=== PATIENT | male | born 1965 | race Caucasian/White ===

== ENCOUNTER 2016-11-21 08:31 | Inpatient (IN) | payer MEDICAID ==
[~2016-11-21] VITALS: Ht 167.6 cm; Wt 104.8 kg
[2016-11-21 08:56] VITALS: BP 136/86
[2016-11-21] MEDS ORDERED: MORPHINE SULFATE 4 MG/ML SYR IVP ONE (09:05)
[2016-11-21 09:29] LABS: BASOPHILS # (AUTO) 0.4 K/uL (0.00-0.22); BASOPHILS % (AUTO) 4.8 % (0.0-2.0); EOSINOPHILS # (AUTO) 0.2 K/uL (0-0.4); EOSINOPHILS % (AUTO) 2.6 % (0.0-4.0); HEMATOCRIT 48.4 % (36-52); HEMOGLOBIN 16.2 g/dL (12.0-18.0); LYMPHOCYTES # (AUTO) 2.9 K/uL (2.0-11.5); LYMPHOCYTES % (AUTO) 33.8 % (20.5-51.1); MEAN CORPUSCULAR HEMOGLOBIN 29 pg (27-31); MEAN CORPUSCULAR HGB CONC 34 g/dL (33-37); MEAN CORPUSCULAR VOLUME 88 fL (80-94); MONOCYTES # (AUTO) 0.6 K/uL (0.8-1.0); MONOCYTES % (AUTO) 7.2 % (1.7-9.3); NEUTROPHILS # (AUTO) 4.5 K/uL (1.8-7.7); NEUTROPHILS % (AUTO) 51.6 % (42.2-75.2); PLATELET COUNT (AUTO) 230 K/uL (140-450); RED CELL DISTRIBUTION WIDTH 13.6 % (11.6-13.7); WHITE BLOOD COUNT (AUTO) 8.6 K/uL (4.8-10.8)
[2016-11-21 10:10] LABS: ANION GAP 11.8 (8-16); CALCIUM 8.7 mg/dL (8.5-10.1); CARBON DIOXIDE 27.3 mmol/L (21-32); POTASSIUM 4.1 mmol/L (3.5-5.1)
[2016-11-21 10:16] LABS: ALBUMIN 3.7 g/dL (3.4-5.0); TOTAL BILIRUBIN 0.4 mg/dL (0.0-1.0)
[2016-11-21] MEDS ORDERED: ACETAMINOPHEN 325 MG TAB PO PRN (11:25)
[2016-11-21] MEDS ORDERED: NACL 0.9% 1,000 ML IV SCH (11:25)
[2016-11-21] MEDS ORDERED: MORPHINE SULFATE 2 MG/ML SYR IVP PRN (11:25)
[2016-11-21] MEDS ORDERED: KETOROLAC 30 MG/ML VIAL IVP PRN (11:25)
[2016-11-21] MEDS ORDERED: DOCUSATE SODIUM 100 MG GELCAP PO PRN (11:25)
[2016-11-21 11:53] LABS: INR 1.1 (0.8-1.2); PARTIAL THROMBOPLASTIN TIME 31.7 secs (22-35.6); PROTHROMBIN TIME 10.9 secs (10.8-13.4)
[2016-11-21 12:06] LABS: CHOL/HDL RATIO 7.2 (1-4.5); FREE T4 (FREE THYROXINE) 0.88 ng/dL (0.76-1.46); MAGNESIUM 2.2 mg/dL (1.8-2.4); PHOSPHORUS 3.2 mg/dL (2.5-4.9); THYROID STIMULATING HORMONE 1.2 uIU/mL (0.34-3.74)
[2016-11-21 12:15] VITALS: BP 126/72
[2016-11-21 16:00] VITALS: BP 109/69
[2016-11-21] MEDS ORDERED: ROCURONIUM 50 MG/5 ML VIAL IV ONE (20:05)
[2016-11-21] MEDS ORDERED: SUCCINYLCHOLINE CHLORIDE 200 MG/10 ML VIAL IVP ONE (20:05)
[2016-11-21] MEDS ORDERED: SEVOFLURANE 250 ML BTL INH ONE (20:05)
[2016-11-21] MEDS ORDERED: DEXAMETHASONE 4 MG/ML VIAL ONE (20:05)
[2016-11-21] MEDS ORDERED: ONDANSETRON 4 MG/2 ML VIAL ONE (20:05)
[2016-11-21] MEDS ORDERED: PROPOFOL 200 MG/20 ML VIAL IV ONE (20:05)
[2016-11-21] MEDS ORDERED: LACTATED RINGERS 1,000 ML IV SCH (20:09)
[2016-11-21] MEDS ORDERED: ONDANSETRON 4 MG/2 ML VIAL IVP PRN (20:10)
[2016-11-21] MEDS ORDERED: diphenhydrAMINE 50 MG/ML VIAL IVP PRN (20:10)
[2016-11-21] MEDS ORDERED: BUPIVACAINE-MPF 0.25% 30 ML VIAL INJ ONE (20:13)
[2016-11-21] MEDS ORDERED: ceFAZolin 1,000 MG VIAL ONE ×2 (20:13→20:24)
[2016-11-21] MEDS ORDERED: MIDAZOLAM 2 MG/2 ML VIAL ONE (20:17)
[2016-11-21] MEDS ORDERED: fentaNYL 0.05 MG/ML VIAL ONE (20:18)
[2016-11-21] MEDS ORDERED: MEPERIDINE 50 MG/ML SYR ONE (20:18)
[2016-11-21] MEDS: MEPERIDINE 25 MG/ML SYR IVP PRN ×2 (23:10→23:20)
[2016-11-21] MEDS ORDERED: MEPERIDINE 25 MG/ML SYR ONE ×2 (23:22→23:31)
[2016-11-21] MEDS: HYDROmorphone 1 MG/ML AMP IVP PRN ×4 (23:25→23:54)
[2016-11-21] MEDS ORDERED: HYDROmorphone PFS 2 MG/ML SYR ONE (23:38)
[2016-11-22] VITALS (8 sets, daily range): BP systolic 113–135; BP diastolic 65–81
[2016-11-22] MEDS: HYDROmorphone 1 MG/ML AMP IVP PRN ×2 (00:32→05:14)
[2016-11-22] MEDS: ONDANSETRON 4 MG/2 ML VIAL IM/IVP PRN ×2 (00:32→05:14)
[2016-11-22] MEDS ORDERED: ceFAZolin 1,000 MG VIAL ONE (04:56)
[2016-11-22 06:25] LABS: ANION GAP 9.6 (8-16); CALCIUM 8.2 mg/dL (8.5-10.1); CARBON DIOXIDE 28.1 mmol/L (21-32); CREATININE 1.2 mg/dL (0.7-1.3); POTASSIUM 4.7 mmol/L (3.5-5.1)
[2016-11-22 06:37] LABS: BASOPHILS # (AUTO) 0.1 K/uL (0.00-0.22); BASOPHILS % (AUTO) 0.9 % (0.0-2.0); EOSINOPHILS # (AUTO) 0.2 K/uL (0-0.4); EOSINOPHILS % (AUTO) 1.8 % (0.0-4.0); HEMOGLOBIN 15.3 g/dL (12.0-18.0); LYMPHOCYTES # (AUTO) 1.4 K/uL (2.0-11.5); MEAN CORPUSCULAR HEMOGLOBIN 30 pg (27-31); MEAN CORPUSCULAR HGB CONC 34 g/dL (33-37); MEAN CORPUSCULAR VOLUME 88 fL (80-94); MONOCYTES # (AUTO) 0.8 K/uL (0.8-1.0); NEUTROPHILS # (AUTO) 11.3 K/uL (1.8-7.7); NEUTROPHILS % (AUTO) 81.3 % (42.2-75.2); PLATELET COUNT (AUTO) 204 K/uL (140-450); RED BLOOD CELL COUNT(AUTO) 5.15 MIL/uL (4.20-6.10); RED CELL DISTRIBUTION WIDTH 13.6 % (11.6-13.7); WHITE BLOOD COUNT (AUTO) 13.8 K/uL (4.8-10.8)
[2016-11-22 06:39] LABS: MAGNESIUM 1.9 mg/dL (1.8-2.4); PHOSPHORUS 3.3 mg/dL (2.5-4.9)
[2016-11-22 08:19] LABS: T4 (THYROXINE) 6.3 ug/dL (4.5-12.0)
[2016-11-22 10:19] LABS: HEMOGLOBIN A1C 6.2 % (4.8-5.6)
[2016-11-22] MEDS ORDERED: DEXTROSE 50% 50 ML SYR IVP PRN (10:35)
[2016-11-22] MEDS: NACL 0.9% 1,000 ML IV SCH (12:02)
[2016-11-22] MEDS: HYDROcodone/APAP 7.5/325 MG 1 TAB PO PRN ×2 (13:29→20:50)
[2016-11-22] MEDS: BLOOD GLUCOSE MONITORING 1 DEV DEV FS SCH ×2 (16:30→20:52)
[2016-11-23] VITALS: BP 127/69
[2016-11-23] MEDS: NACL 0.9% 1,000 ML IV SCH ×2 (01:22→11:44)
[2016-11-23] MEDS: HYDROcodone/APAP 7.5/325 MG 1 TAB PO PRN ×2 (05:40→11:36)
[2016-11-23] MEDS: BLOOD GLUCOSE MONITORING 1 DEV DEV FS SCH ×2 (05:46→11:44)
[2016-11-23 06:42] LABS: BASOPHILS # (AUTO) 0.4 K/uL (0.00-0.22); BASOPHILS % (AUTO) 3.5 % (0.0-2.0); EOSINOPHILS # (AUTO) 0.1 K/uL (0-0.4); EOSINOPHILS % (AUTO) 0.9 % (0.0-4.0); HEMATOCRIT 45.3 % (36-52); HEMOGLOBIN 14.8 g/dL (12.0-18.0); LYMPHOCYTES # (AUTO) 2.2 K/uL (2.0-11.5); MEAN CORPUSCULAR HEMOGLOBIN 29 pg (27-31); MEAN CORPUSCULAR HGB CONC 33 g/dL (33-37); MEAN CORPUSCULAR VOLUME 89 fL (80-94); MONOCYTES # (AUTO) 0.9 K/uL (0.8-1.0); MONOCYTES % (AUTO) 8.3 % (1.7-9.3); NEUTROPHILS # (AUTO) 7.5 K/uL (1.8-7.7); NEUTROPHILS % (AUTO) 67.3 % (42.2-75.2); PLATELET COUNT (AUTO) 194 K/uL (140-450); RED CELL DISTRIBUTION WIDTH 13.5 % (11.6-13.7); WHITE BLOOD COUNT (AUTO) 11.1 K/uL (4.8-10.8)
[2016-11-23 07:03] LABS: ANION GAP 10.3 (8-16); CALCIUM 8.2 mg/dL (8.5-10.1); CARBON DIOXIDE 26.3 mmol/L (21-32); POTASSIUM 3.6 mmol/L (3.5-5.1)
[2016-11-23 07:12] LABS: MAGNESIUM 2.1 mg/dL (1.8-2.4); PHOSPHORUS 2.2 mg/dL (2.5-4.9)
[2016-11-23 08:00] VITALS: BP 114/63
[2016-11-23] MEDS ORDERED: HYDROcodone/APAP 7.5/325 MG 1 TAB PO PRN (13:40)
[2016-11-23] MEDS ORDERED: ACET-2863 PO (14:12)
== END 2016-11-23 15:40 | disposition home or self-care (01) | DRG 228 ==
LOC: MED 08:31 → EDBD 08:31 → MTU 11:25
PROVIDERS: ADMIT Family Medicine; ATTEND Family Medicine
PROC: 0YU60JZ Supplement Left Inguinal Region with Synthetic Substitute, Open Approach (ICD-10-PCS; principal; 2016-11-21 20:00)
DX: K40.30 Unilateral inguinal hernia, with obstruction, without gangrene, not specified as recurrent (principal); D68.59 Other primary thrombophilia; E11.65 Type 2 diabetes mellitus with hyperglycemia; E83.39 Other disorders of phosphorus metabolism; E11.51 Type 2 diabetes mellitus with diabetic peripheral angiopathy without gangrene; E78.5 Hyperlipidemia, unspecified; E66.8 Other obesity; F17.210 Nicotine dependence, cigarettes, uncomplicated; Z68.37 Body mass index [BMI] 37.0-37.9, adult
CPT/HCPCS: 36415; 71010; 80048; 80053; 82150; 82948; 83036; 83690; 83735; 83880; 84100; 84436; 84439; 84443; 84479; 84484; 85025; 85610; 85730; 86886; 86900; 86901; 87081; 93005; 93925; 93970; 96374; 99285; J0330; J0690; J1100; J1170; J1885; J2175; J2250; J2270; J2405; J2704; J3010; J3490; J7030; J7060; Q0092